=== PATIENT | female | born 1955 | race Caucasian/White ===

== ENCOUNTER 2019-01-16 16:20 | Inpatient (IN) | payer BC, OTHER ==
[~2019-01-16] VITALS: Ht 152.4 cm; Wt 63.7 kg
[~2019-01-16 16:20] MED LIST: CIPROFLOXACIN500 M1 PO; FLAGYL500 MG PO; NORCO 5-325 TA1 EACH PO; XOPENEX1.25 MG/3 IH
[2019-01-16 16:24] VITALS: BP 155/83
[2019-01-16 17:01] LABS: URINE BILIRUBIN NEGATIVE (Negative); URINE BLOOD 1+ (Negative); URINE CLARITY CLEAR; URINE COLOR YELLOW; URINE GLUCOSE-RANDOM* NEGATIVE (Negative); URINE KETONES NEGATIVE (Negative); URINE LEUKOCYTES-REFLEX NEGATIVE (Negative); URINE NITRITE-REFLEX NEGATIVE (Negative); URINE PROTEIN (DIPSTICK) NEGATIVE (Negative); URINE SPECIFIC GRAVITY <= 1.005 (1.005-1.035); URINE UROBILINOGEN 0.2 E.U./dl (0.2-1.0)
[2019-01-16 17:09] LABS: BACTERIA-REFLEX None Seen /HPF (None Seen); CASTS None Seen /LPF (None Seen); CRYSTALS None Seen /LPF (None Seen); SQUAMOUS None Seen /LPF (0-3); URINE RBC 0-2 Rare /HPF (0-2); URINE WBC-REFLEX None Seen /HPF (0-5)
[2019-01-16 17:14] LABS: ABSOLUTE NEUTROPHILS 11.6 thou/uL (1.4-8.2); BASOPHILS 0.5 % (0.0-2.0); EOSINOPHILS 0.4 % (0.0-3.0); HEMATOCRIT 42.5 % (37.0-47.0); HEMOGLOBIN 14.1 gm/dL (12.0-15.0); LYMPHOCYTES 12.8 % (24.0-44.0); MCH 29.8 pg (26.0-34.0); MCHC 33.1 g/dL (28.0-37.0); MONOCYTES 8.8 % (1.0-8.0); PLATELET COUNT 338 thou/uL (150-400); POLYS 77.5 % (36.0-66.0); RBC 4.72 mil/uL (4.20-5.00); RDW 13.6 % (10.5-14.5); WBC 14.9 thou/uL (4.0-11.0)
[2019-01-16 17:22] LABS: CALCIUM 9.2 mg/dL (8.5-10.1); CREATININE 0.6 mg/dL (0.6-1.0); POTASSIUM 3.8 mmol/L (3.5-5.1)
[2019-01-16 17:28] LABS: ALBUMIN 3.8 g/dL (3.4-5.0); DIRECT BILIRUBIN 0.2 mg/dL (<0.1-0.3); TOTAL BILIRUBIN 0.7 mg/dL (<0.1-1.0); TOTAL PROTEIN 7.7 g/dL (6.4-8.2)
[2019-01-16] MEDS ORDERED: BREO ELLIPTA 11 EACH INH (17:28)
[2019-01-16] MEDS ORDERED: EVISTA60 MG PO (17:29)
[2019-01-16] MEDS ORDERED: CALCIUM500 MG PO (17:31)
[2019-01-16] MEDS ORDERED: VITAMIN D2000 UNIT PO (17:31)
[2019-01-16 21:14] VITALS: BP 128/63
[2019-01-16 21:55] VITALS: BP 124/59
[2019-01-16 22:10] VITALS: BP 136/70
--- NOTE | 2019-01-17 00:29 | NUR ---
PT ARRIVED ON THE UNIT @2200 A&OX4 WITH C/O OF PAIN IN LLQ PAIN MEDS GIVEN SEE EMAR. IV IN LFT HAND INTACT AND FLUIDS INFUSING. UP AD BOGDAN TO THE BATHROOM. ADM DOCUMENTED AND PT ORIENTED TO THE ROOM. CALL LIGHTS IN PLACE AND PT NPO AFTER MIDNIGHT WILL CONT WITH POC TILL EOS.
[2019-01-17 03:30] VITALS: BP 103/56
[2019-01-17 06:13] LABS: HEMATOCRIT 37.6 % (37.0-47.0); HEMOGLOBIN 12.4 gm/dL (12.0-15.0); MCH 29.6 pg (26.0-34.0); MCHC 32.9 g/dL (28.0-37.0); RBC 4.18 mil/uL (4.20-5.00); RDW 14.1 % (10.5-14.5); WBC 10.7 thou/uL (4.0-11.0)
[2019-01-17 06:39] LABS: CALCIUM 8.7 mg/dL (8.5-10.1); CREATININE 0.5 mg/dL (0.6-1.0); POTASSIUM 3.4 mmol/L (3.5-5.1)
[2019-01-17 07:50] VITALS: BP 138/73
[2019-01-17 16:12] VITALS: BP 150/64
--- NOTE | 2019-01-17 16:17 | NUR ---
PT ADMITTED RELATED TO DIVERTICULITIS, LOWER ABD PAIN. CM REVIEWED CHART AND SPOKE WITH CARE TEAM. CM MET WITH PT AT BEDSIDE THIS DAY. PT IS A&O X4. CM ROLE INTRODUCED. PT INDICATED SHE LIVES IN A HOUSE WITH HER SPOUSE WITH NO STEPS TO ENTER AND 6 STEPS INSIDE. 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 PT INDICATED NO DME OR HH HX. PT INDICATED SHE PLANS TO DC HOME ONCE MEDICALLY STABLE. CM TO FOLLOW INDICATED WITH DC PLANNING.
--- NOTE | 2019-01-17 16:30 | NUR ---
Assumed pt care at 7am.Pt in and out of bed to br independently.Assessment completed.vss.Dr Peters and Itzel here,order noted.Pt refused clear tray due to allergy but family brought broth for pt from home.Meds given and well tolerated.Will continue to monitor.
[2019-01-17 19:35] VITALS: BP 131/70
[2019-01-18 04:00] VITALS: BP 133/61
--- NOTE | 2019-01-18 04:55 | NUR ---
ASSUMED PT CARE [id number]. PT ALERT AND ORIENTED. REASSESMENT FLEX FARFAN. PT UP AD BOGDAN, REPORTS FREQUENT URINATION. DENIES PAIN, DENIES N/V. TOLERATING CLEAR LIQUID DIET. CALL LIGHT AND PERSONAL BELONIGNS WITHIN REACH, WILL CONTINUE POC UNTIL EOS.
[2019-01-18 07:46] VITALS: BP 131/67
[2019-01-18 07:53] LABS: HEMATOCRIT 35.4 % (37.0-47.0); HEMOGLOBIN 11.6 gm/dL (12.0-15.0); MCH 29.8 pg (26.0-34.0); MCHC 32.8 g/dL (28.0-37.0); MCV 90.7 fL (80.0-100.0); RBC 3.9 mil/uL (4.20-5.00); RDW 13.8 % (10.5-14.5); WBC 6.5 thou/uL (4.0-11.0)
[2019-01-18 08:09] LABS: ALBUMIN 3.1 g/dL (3.4-5.0); CALCIUM 8.1 mg/dL (8.5-10.1); CREATININE 0.5 mg/dL (0.6-1.0); MAGNESIUM 1.8 mg/dL (1.8-2.4); PHOSPHORUS 2.7 mg/dL (2.5-4.9); POTASSIUM 3.7 mmol/L (3.5-5.1)
--- NOTE | 2019-01-18 11:37 | NUR ---
Assumed pt care at 7am.Pt in bed resting, reported sleeping good last night. Assessment completed.vss.Dr Porras and Sandeep here.order noted.Pt advanced to regular diet and well tolerated.Piv was infiltrated.Dr Hopkins noted and said not to replace since pt will be dc home later today.Pt informed.Will continue to monitor.
[2019-01-18] MEDS ORDERED: PEPCID20 MG PO (13:25)
[2019-01-18] MEDS ORDERED: FLAGYL500 M1 PO (13:25)
[2019-01-18] MEDS ORDERED: ZOFRAN ODT4 MG PO (13:25)
[2019-01-18] MEDS ORDERED: CIPRO500 M1 PO (13:25)
[2019-01-18 14:16] VITALS: BP 131/67
== END 2019-01-18 15:37 | disposition home or self-care (01) | DRG 872 ==
LOC: ER 16:20 → EROBS 20:02 → 4E 20:02
PROVIDERS: Emergency Medicine; Nurse Practitioner Family; Surgery; ADMIT Internal Medicine
DX: A41.9 Sepsis, unspecified organism (principal); K57.20 Diverticulitis of large intestine with perforation and abscess without bleeding; J45.909 Unspecified asthma, uncomplicated; R73.03 Prediabetes; M81.0 Age-related osteoporosis without current pathological fracture; Z79.51 Long term (current) use of inhaled steroids; Z79.899 Other long term (current) drug therapy; Z88.5 Allergy status to narcotic agent; Z88.2 Allergy status to sulfonamides; Z88.8 Allergy status to other drugs, medicaments and biological substances
CPT/HCPCS: 10084; 10183